=== PATIENT | male | born 1980 | race American Indian/Alaskan Native ===

== ENCOUNTER 2020-02-10 12:07 | Emergency (ER) | payer OTHER ==
[2020-02-10 12:18] VITALS: BP 138/78
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
[2020-02-10] MEDS ORDERED: ACETAMINOPHEN W/CODEINE 300-30 MG TAB PO ONE (13:20)
== END 2020-02-10 13:23 ==
LOC: ED 12:07
DX: S01.112A Laceration without foreign body of left eyelid and periocular area, initial encounter (principal); Z79.899 Other long term (current) drug therapy; W01.0XXA Fall on same level from slipping, tripping and stumbling without subsequent striking against object, initial encounter; Y93.89 Activity, other specified; Y92.89 Other specified places as the place of occurrence of the external cause; Y99.8 Other external cause status
CPT/HCPCS: 99282